=== PATIENT | male | born 1995 | race Two or more races ===

== ENCOUNTER 2021-08-18 05:33 | Emergency (ER) | payer OTHER ==
[~2021-08-18] VITALS: Ht 175.3 cm; Wt 64.0 kg
[2021-08-18] MEDS ORDERED: KETOROLAC TROMETHAMINE 30 MG/ML VIAL IV STA (05:53)
[2021-08-18] MEDS ORDERED: SODIUM CHLORIDE 0.9% 1000ML 1,000 ML IV STA (05:53)
[2021-08-18] MEDS ORDERED: ONDANSETRON HCL INJ 2MG/ML 2ML 2 MG/ML VIAL ONE (05:58)
[2021-08-18] MEDS ORDERED: SODIUM CHLORIDE 0.9% 1000ML 1,000 ML ONE (05:58)
[2021-08-18] MEDS ORDERED: DONNATAL/LIDOCAINE/MAALOX 30 ML SUSP PO ONE (06:00)
[2021-08-18] MEDS ORDERED: FAMOTIDINE 20 MG/2 ML VIAL IV STA (06:02)
[2021-08-18] MEDS ORDERED: SODIUM CHLORIDE 0.9% 50ML 50 ML ONE (06:16)
[2021-08-18] MEDS ORDERED: IOPAMIDOL 370 MG/ML 200 ML INFUS..BTL INJ ONE (06:16)
[2021-08-18] MEDS ORDERED: FAMOTIDINE 20 MG/2 ML VIAL IV ONE (06:22)
[2021-08-18] MEDS ORDERED: KETOROLAC TROMETHAMINE 30 MG/ML VIAL ONE (06:22)
[2021-08-18] MEDS ORDERED: LIDOCAINE VISC 2% SOLN 15 ML UDC ONE (06:59)
[2021-08-18] MEDS ORDERED: MAGNESIUM/ALUMINUM/SIMETHICONE 30 ML UDC ONE (07:00)
[2021-08-18] MEDS ORDERED: BELLADONNA ALK/PHENOBARBITAL 5 ML UDC ONE (07:00)
[2021-08-18] MEDS ORDERED: ONDANSETRON ODT4 MG PO (07:01)
[2021-08-18] MEDS ORDERED: MAALOX MAXIMUM355 ML PO (07:01)
[2021-08-18] MEDS ORDERED: FAMOTIDINE20 MG PO (07:01)
[2021-08-18 07:07] VITALS: BP 100/71
== END 2021-08-18 07:09 | disposition home or self-care (01) ==
LOC: FSED 05:48
DX: R11.2 Nausea with vomiting, unspecified (principal); R10.30 Lower abdominal pain, unspecified; K52.9 Noninfective gastroenteritis and colitis, unspecified
CPT/HCPCS: 74177; 80053; 85025; 96374; 96375; 96376; 99284; J1885; J2405; J7030; Q9967